=== PATIENT | male | born 1950 | race Caucasian/White ===

== ENCOUNTER 2021-08-24 22:00 | Inpatient (IN) | payer OTHER ==
[~2021-08-24] VITALS: Ht 167.6 cm; Wt 85.7 kg
--- NOTE | 2021-08-24 23:00 | NUR ---
PT BIBWIFE C/O LEFT LOWER EXTREMITY SWELLING WITH PAIN. PT AAOX 4 BREATHING EVENLY AND UNLABORED. UPON ASSESSMENT, THERE IS SWELLING TO THE LEFT LEG, BUT NO REDNESS NOTED. PEDAL PULSES FELT IN LEFT EXTREMITY. PT ATTACHED TO MONITOR AND POX.
--- NOTE | 2021-08-24 23:22 | NUR ---
US TECH EN ROUTE. ETA 10MIN
--- NOTE | 2021-08-24 23:49 | NUR ---
US TECH AT BEDSIDE
--- NOTE | 2021-08-25 00:41 | NUR ---
MOVE SHEET SUBMITTED
--- NOTE | 2021-08-25 00:49 | NUR ---
BLOOD DRAWN AND SENT TO LAB
--- NOTE | 2021-08-25 00:50 | NUR ---
COVID SWAB SENT TO LAB
--- NOTE | 2021-08-25 00:51 | NUR ---
STAT RAD PAGED, RESULTS ETA 1 HOUR
[2021-08-25 00:56] LABS: BASOPHILS # (AUTO) 0.1 K/uL (0.0-0.2); EOSINOPHILS % (AUTO) 3.8 % (0.0-6.0); HEMATOCRIT 46 % (39-51); HEMOGLOBIN 15.6 g/dL (13.5-17.5); LYMPHOCYTES # (AUTO) 2.1 K/uL (0.8-4.8); LYMPHOCYTES % (AUTO) 24.3 % (20.0-44.0); MEAN CORPUSCULAR HGB CONC 34 g/dl (31.0-36.0); MEAN CORPUSCULAR VOLUME 98 fL (80-96); MONOCYTES # (AUTO) 0.9 K/uL (0.1-1.30); MONOCYTES % (AUTO) 10.4 % (2.0-12.0); NEUTROPHILS # (AUTO) 5.3 K/uL (1.8-8.9); NEUTROPHILS % (AUTO) 60.5 % (43.0-81.0); PLATELET COUNT (AUTO) 86 K/uL (150-450); RED BLOOD CELL COUNT(AUTO) 4.66 MIL/uL (4.5-6.0); WHITE BLOOD COUNT (AUTO) 8.7 K/uL (4.3-11.0)
[2021-08-25] MEDS ORDERED: ENOXAPARIN SODIUM 100 MG/ML DISP.SYRIN SQ ONE (00:56)
[2021-08-25] MEDS ORDERED: ENOXAPARIN SODIUM 30 MG/0.3 ML DISP.SYRIN SQ ONE (01:00)
[2021-08-25 01:16] LABS: CALCIUM, SERUM 8.6 mg/dL (8.5-10.1); CARBON DIOXIDE 28 mmol/L (21-32); CHLORIDE 103 mmol/L (98-107); GLUCOSE 111 mg/dL (74-106); POTASSIUM 4.1 mmol/L (3.5-5.1); SODIUM SERUM 138 mmol/L (136-145); UREA NITROGEN, BLOOD 17 mg/dL (7-18)
[2021-08-25 01:21] LABS: ALANINE AMINOTRANSFERASE 12 U/L (12-78); ALBUMIN 3.1 g/dL (3.4-5.0); ALKALINE PHOSPHATASE 62 U/L (46-116); ASPARTATE AMINOTRANSFERASE 16 U/L (15-37); BILIRUBIN,DIRECT 0.2 mg/dL (0.0-0.2); BILIRUBIN,TOTAL 0.8 mg/dL (0.2-1.0); TOTAL PROTEIN, SERUM 7.3 g/dL (6.4-8.2)
--- NOTE | 2021-08-25 01:23 | NUR ---
per lab Troponin 160. aware
--- NOTE | 2021-08-25 01:23 | NUR ---
Tran humphries in [facility] - 08/25/21 at 0123 by JOSH 160 tropopin
[2021-08-25 01:42] LABS: BASOPHILS % (MANUAL) 0 % (0.0-2.0); EOSINOPHILS % (MANUAL) 5 % (0-4); LYMPHOCYTES % (MANUAL) 26 % (16-48); MONOCYTES % (MANUAL) 12 % (0-11.0); NEUTROPHILS % (MANUAL) 64 (42-76)
--- NOTE | 2021-08-25 02:02 | NUR ---
VERBAL AUTH FROM GREG FROM [facility], CM
--- NOTE | 2021-08-25 02:07 | NUR ---
[facility] PAGED
--- NOTE | 2021-08-25 02:36 | NUR ---
REPAGED [facility], SOLAR ENERGY SYSTEM INSTALLER HELPER DR SCHNEIDER
--- NOTE | 2021-08-25 04:00 | NUR ---
Patient is resting comfortably in bed with eyes closed. Easily aroused. VSS
[2021-08-25] MEDS ORDERED: ACETAMINOPHEN 325 MG TABLET PO PRN (05:30)
[2021-08-25] MEDS ORDERED: ONDANSETRON HCL/PF 4 MG/2 ML VIAL IVP PRN (05:30)
--- NOTE | 2021-08-25 05:30 | NUR ---
PT AMBULATED TO USE BATHROOM. NEEDS MET
--- NOTE | 2021-08-25 06:00 | NUR ---
PT SLEEPING, ATTACHED TO MONITOR AND POX. VSS
[2021-08-25] MEDS ORDERED: LOSA25TA27 PO (06:59)
--- NOTE | 2021-08-25 08:38 | NUR ---
report given to Malika SCHREIBER to continue care.
--- NOTE | 2021-08-25 08:40 | NUR ---
wheeled patient via gurney accompanied by RN and emt in no distress. RN assigned to patient at bedside to assume care.
[2021-08-25 08:50] VITALS: BP 130/89
[2021-08-25 09:28] LABS: CHOLESTEROL 183 mg/dL (<200); HDL CHOLESTEROL 58 mg/dL (40-60); LDL 110 mg/dL (0-99); TRIGLYCERIDES 49 mg/dL (30-150)
[2021-08-25] MEDS ORDERED: ASPIRIN 81 MG TAB.CHEW PO SCH (09:30)
[2021-08-25] MEDS: ENOXAPARIN SODIUM 80 MG/0.8 ML DISP.SYRIN SQ SCH ×2 (09:42→21:53)
[2021-08-25] MEDS: ATORVASTATIN 10 MG TABLET PO SCH (10:03)
--- NOTE | 2021-08-25 10:30 | NUR ---
SUMAC TANNER ADMITTING NOTES PATIENT ARRIVED TO UNIT @0845 WITH TRANSPORT. PATIENT ABLE TO AMBULATE TO HIS BED, GAIT STEADY. PATIENT IS A/0 x4, CHILEAN, KINYARWANDA FIRST LANGUAGE, UNDERSTANDS AND SPEAKS SOME UKRAINIAN. FULL BODY ASSESSMENT COMPLETED, HEART SOUNDS WITHIN NORMAL LIMITS, LUNG SOUNDS CLEAR, SOUNDS PRESENT IN ALL FOUR QUADRANTS OF STOMACH. STOMACH IS SOFT, NO PAIN NOTED WHEN PRESSED. SKIN IS INTACT, EDEMA NOTED ON L LEG +2, HARD SWOLLEN CALF. PATIENT ATTACHED TO EXTERNAL CIRCULATION TENDER AT THIS TIME, READING SINUS BRADYCARDIA 68. NO C/O OF CARDIAC DISTRESS EXPRESSED. ON ROOM AIR, NO S/S OF RESPIRATORY DISTRESS NOTED. IV ACCESS IN L AC #20G, INTACT AND PATENT. DAUGHTER AT BEDSIDE, WILL CONTINUE TO MONITOR.
[2021-08-25] MEDS ORDERED: IV NS 0.9% 250 ML IV ONE (10:43)
[2021-08-25] MEDS ORDERED: IOHEXOL-350 100 ML VIAL IV ONE (10:43)
[2021-08-25] MEDS ORDERED: CT SWABBABLE VALVE TRANS SET 1 EA INFUS.SET MC ONE (10:44)
--- NOTE | 2021-08-25 10:48 | NUR ---
RN NOTES PATIENT LEFT UNIT FOR CT SCAN, PATIENT LEFT VIA WHEELCHAIR IN STABLE CONDITION WITH 1 STAFF ACCOMPANYING
--- NOTE | 2021-08-25 11:28 | NUR ---
RN NOTES PATIENT RETURNED TO UNIT IN STABLE CONDITION, SON NOW AT BEDSIDE.
--- NOTE | 2021-08-25 12:08 | NUR ---
RN NOTES RECEIVED CT PULMONARY ANGIO RESULTS, DR. CHEEK INFORMED AND RESULTS ACKNOWLEDGED. NO NEW ORDERS AT TIME.
[2021-08-25 16:00] VITALS: BP_SYST 120; BP_SYST 124; BP_DIAS 73; BP_DIAS 77
--- NOTE | 2021-08-25 18:34 | NUR ---
PHOTOGRAPHIC PRINTER CLOSING NOTES PATIENT SLEEPING IN BED, EASILY AROUSED. A/O x4, STABLE ON ROOM AIR NO S/S OF RESPIRATORY DISTRESS OR DISCOMFORT. PATIENT IS ON TELE MONITORING, SINUS GINA RHYTHM AT THIS TIME, HR 57, NO S/S OF CARDIAC DISTRESS. NO PAIN OR DISCOMFORT NOTED OR VERBALIZED AT THIS TIME. IV ACCESS L AC #20, INTACT AND PATENT, NO S/S OF BLEEDING OR INFILTRATION AT THIS TIME. AMBULATORY AND CONTINENT HAS BATHROOM PRIVILEGE. SKIN IS INTACT, PATIENT HAS LLE DVT AND EDEMA OF ANKLE AND FOOT +2. ALL PRESCRIBED MEDICATION ADMINISTERED. SAFETY MEASURES MAINTAINED: BED LOCKED AND IN LOWEST POSITION, SIDE RAILS UP x2, CALL LIGHT WITHIN REACH, HEAD OF THE BED ELEVATED. WILL ENDORSE TO NEXT SHIFT ANY DAVIS.
--- NOTE | 2021-08-25 19:42 | NUR ---
MANAGER ACCESS NOTES: RECEIVED PATIENT CHATTING WITH FAMILY MEMBERS. A/O x4, SPEAKS ISRAELI. STABLE ON ROOM AIR NO S/S OF RESPIRATORY OR CARDIAC DISTRESS. DENIES ANY PAIN. PATIENT IS ON TELE MONITORING, SINUS GINA RHYTHM AT THIS TIME. IV ACCESS L AC #20, INTACT AND PATENT. PATIENT IS AMBULATORY AND CONTINENT AND HAS BATHROOM PRIVILEGE. BED IS LOCKED AND IN LOWEST POSITION, SIDE RAILS UP x2 FOR SAFETY, CALL LIGHT WITHIN REACH. WILL CONTINUE TO MONITOR.
[2021-08-25 20:00] VITALS: BP 146/91
[2021-08-26] VITALS: BP 128/81
[2021-08-26 04:00] VITALS: BP 123/66
--- NOTE | 2021-08-26 06:38 | NUR ---
CAB STARTER CLOSING NOTES: PATIENT IS SLEEPING IN BED AND STABLE ON ROOM AIR. NO S/S OF RESPIRATORY OR CARDIAC DISTRESS. PATIENT IS ON TELE MONITORING, SINUS GINA RHYTHM AT THIS TIME. IV ACCESS L AC #20, INTACT AND PATENT. PATIENT HAS LLE DVT AND EDEMA. PATIENT IS AMBULATORY AND CONTINENT AND HAS BATHROOM PRIVILEGE. ALL PATIENT CARE NEEDS HAVE BEEN MET ANTICIPATED. BED IS LOCKED AND IN LOWEST POSITION, SIDE RAILS UP x2 FOR SAFETY, CALL LIGHT WITHIN REACH. WILL CONTINUE TO MONITOR.
[2021-08-26 06:49] LABS: BASOPHILS # (AUTO) 0.1 K/uL (0.0-0.2); HEMATOCRIT 43 % (39-51); HEMOGLOBIN 14.6 g/dL (13.5-17.5); LYMPHOCYTES # (AUTO) 2.2 K/uL (0.8-4.8); LYMPHOCYTES % (AUTO) 29.5 % (20.0-44.0); MEAN CORPUSCULAR HGB CONC 34 g/dl (31.0-36.0); MEAN CORPUSCULAR VOLUME 98 fL (80-96); MONOCYTES # (AUTO) 0.7 K/uL (0.1-1.30); MONOCYTES % (AUTO) 9.9 % (2.0-12.0); NEUTROPHILS # (AUTO) 3.9 K/uL (1.8-8.9); NEUTROPHILS % (AUTO) 52.6 % (43.0-81.0); PLATELET COUNT (AUTO) 101 K/uL (150-450); WHITE BLOOD COUNT (AUTO) 7.4 K/uL (4.3-11.0)
--- NOTE | 2021-08-26 07:05 | NUR ---
MOLYBDENUM STEAMER OPERATOR OPENING NOTES RECEIVED PATIENT AWAKE IN BED. A/O x4, STABLE ON ROOM AIR NO S/S OF RESPIRATORY DISTRESS OR DISCOMFORT. PATIENT IS ON TELE MONITORING, SINUS GNIA RHYTHM AT THIS TIME, HR 59, NO S/S OF CARDIAC DISTRESS. NO PAIN OR DISCOMFORT NOTED OR VERBALIZED AT THIS TIME. IV ACCESS L AC #20, INTACT AND PATENT, NO S/S OF BLEEDING OR INFILTRATION AT THIS TIME. AMBULATORY AND CONTINENT HAS BATHROOM PRIVILEGE. SKIN IS INTACT, PATIENT HAS LLE DVT AND EDEMA OF ANKLE AND FOOT +2. SAFETY MEASURES IN PLACE: BED LOCKED AND IN LOWEST POSITION, SIDE RAILS UP x2, CALL LIGHT WITHIN REACH, HEAD OF THE BED ELEVATED. WILL CONTINUE TO MONITOR.
[2021-08-26 08:00] VITALS: BP 133/85
[2021-08-26 08:06] LABS: CALCIUM, SERUM 8.4 mg/dL (8.5-10.1); CREATININE 0.9 mg/dL (0.6-1.3); MAGNESIUM 2.4 mg/dL (1.8-2.4); PHOSPHORUS 3.3 mg/dL (2.5-4.9)
[2021-08-26] MEDS: ENOXAPARIN SODIUM 80 MG/0.8 ML DISP.SYRIN SQ SCH ×2 (08:46→21:18)
[2021-08-26] MEDS: ATORVASTATIN 10 MG TABLET PO SCH (08:46)
--- NOTE | 2021-08-26 09:00 | NUR ---
RN NOTES PATIENT WENT DOWN FOR CT ANGIO OF THE HEART. STABLE AND ACCOMPANIED BY 1 CAGE MAKER IN WHEELCHAIR.
--- NOTE | 2021-08-26 10:00 | NUR ---
RN NOTES PATIENT RETURNED FROM CT, STABLE, NO S/S OF PAIN OR DISCOMFORT. WILL CONTINUE TO MONITOR.
[2021-08-26] MEDS ORDERED: IV NS 0.9% 250 ML IV ONE (10:04)
[2021-08-26] MEDS ORDERED: IOHEXOL-350 100 ML VIAL IV ONE (10:04)
[2021-08-26] MEDS ORDERED: CT SWABBABLE VALVE TRANS SET 1 EA INFUS.SET MC ONE (10:04)
[2021-08-26] MEDS ORDERED: NITROGLYCERIN 0.4 MG/TAB BOTTLE ONE (10:04)
[2021-08-26] MEDS ORDERED: METOPROLOL TARTRATE INJ 5 MG/5 ML AMPUL ONE (10:04)
[2021-08-26 12:00] VITALS: BP 137/82
[2021-08-26 16:00] VITALS: BP 128/74
--- NOTE | 2021-08-26 18:42 | NUR ---
MATERIAL HANDLER 2ND SHIFT CLOSING NOTES RECEIVED PATIENT AWAKE IN BED. A/O x4, STABLE ON ROOM AIR NO S/S OF RESPIRATORY DISTRESS OR DISCOMFORT. PATIENT IS ON TELE MONITORING, SINUS GINA RHYTHM AT THIS TIME, HR 57, NO S/S OF CARDIAC DISTRESS. NO PAIN OR DISCOMFORT NOTED OR VERBALIZED AT THIS TIME. IV ACCESS L AC #20, INTACT AND PATENT, NO S/S OF BLEEDING OR INFILTRATION AT THIS TIME. AMBULATORY AND CONTINENT HAS BATHROOM PRIVILEGE. SKIN IS INTACT, PATIENT HAS LLE DVT AND EDEMA OF ANKLE AND FOOT +2. ALL PRESCRIBED MEDICATION ADMINISTERED. SAFETY MEASURES MAINTAINED: BED LOCKED AND IN LOWEST POSITION, SIDE RAILS UP x2, CALL LIGHT WITHIN REACH, HEAD OF THE BED ELEVATED. WILL ENDORSE TO NEXT SHIFT ANY DAVIS.
[2021-08-26 20:00] VITALS: BP 132/86
--- NOTE | 2021-08-26 20:00 | NUR ---
PATTERNMAKER HELPER OPENING NOTES RECEIVED PATIENT AWAKE IN BED. A/O x4, STABLE ON ROOM AIR NO S/S OF RESPIRATORY DISTRESS OR DISCOMFORT. PATIENT IS ON TELE MONITORING, SINUS GINA RHYTHM AT THIS TIME, HR 57, NO S/S OF CARDIAC DISTRESS. NO PAIN OR DISCOMFORT NOTED OR VERBALIZED AT THIS TIME. IV ACCESS L AC #20, INTACT AND PATENT, NO S/S OF BLEEDING OR INFILTRATION AT THIS TIME. AMBULATORY AND CONTINENT HAS BATHROOM PRIVILEGE. SKIN IS INTACT, PATIENT HAS LLE DVT AND EDEMA OF ANKLE AND FOOT +2. SAFETY MEASURES MAINTAINED: BED LOCKED AND IN LOWEST POSITION, SIDE RAILS UP x2, CALL LIGHT WITHIN REACH, HEAD OF THE BED ELEVATED. WILL CONTINUE TO MONITOR.
--- NOTE | 2021-08-26 21:28 | NUR ---
DEPLOYMENT TECHNICIAN NOTES PT SEEN BY DR KEYES NEW ORDER FOR CT OF THE ABDOMEN WITH CONTRAST CONSENT OBTAINED PLACED IN CHART PT TO BE NPO AFTER MIDNIGHT FOR CT ON THE AM PT AWARE. WILL CONTINUE TO MONITOR.
[2021-08-27] VITALS: BP 118/74
[2021-08-27 04:00] VITALS: BP 113/83
--- NOTE | 2021-08-27 06:49 | NUR ---
LEGAL RECORDS CLERK CLOSING NOTES PATIENT ASLEEP IN BED. A/O x4, STABLE ON ROOM AIR NO S/S OF RESPIRATORY DISTRESS OR DISCOMFORT. PATIENT IS ON TELE MONITORING, SINUS GINA RHYTHM AT THIS TIME NO S/S OF CARDIAC DISTRESS. NO PAIN OR DISCOMFORT NOTED OR VERBALIZED AT THIS TIME. IV ACCESS LAC #20, INTACT AND PATENT, NO S/S OF BLEEDING OR INFILTRATION AT THIS TIME. AMBULATORY AND CONTINENT HAS BATHROOM PRIVILEGE. SKIN IS INTACT, PATIENT HAS LLE DVT AND EDEMA OF ANKLE AND FOOT +2. SAFETY MEASURES MAINTAINED: BED LOCKED AND IN LOWEST POSITION, SIDE RAILS UP x2, CALL LIGHT WITHIN REACH, HEAD OF THE BED ELEVATED. WILL ENDORSE CARE TO DAY SHIFT NURSE.
[2021-08-27 07:07] LABS: PROSTATE SPECIFIC ANTIGEN SCR 2.27 ng/mL (0.00-4.00)
--- NOTE | 2021-08-27 07:30 | NUR ---
INSTRUCTOR WASTEWATER TREATMENT PLANT OPENING NOTES RECEIVED PATIENT SLEEPING COMFORTABLY IN BED. A/O x4, STABLE ON ROOM AIR NO S/S OF RESPIRATORY DISTRESS OR DISCOMFORT. PATIENT IS ON TELE MONITORING, SINUS GINA RHYTHM, HR 56. NO REPORTED PAIN OR DISCOMFORT AT THIS TIME. SKIN IS INTACT, PATIENT HAS LLE DVT AND EDEMA OF ANKLE AND FOOT +2. IV ACCESS LAC #20, INTACT AND PATENT. PATIENT IS AMBULATORY AND HAS BATHROOM PRIVILEGE. SAFETY MEASURES MAINTAINED: BED LOCKED AND IN LOWEST POSITION, SIDE RAILS UP x2, CALL LIGHT WITHIN REACH, HEAD OF THE BED ELEVATED. WILL CONTINUE TO MONITOR FOR DAVIS.
[2021-08-27 08:00] VITALS: BP 136/79
[2021-08-27] MEDS: ATORVASTATIN 10 MG TABLET PO SCH (08:57)
[2021-08-27] MEDS: APIXABAN 5 MG TABLET PO SCH ×2 (08:58→16:24)
[2021-08-27 10:03] LABS: CALCIUM, SERUM 8.5 mg/dL (8.5-10.1); CREATININE 0.9 mg/dL (0.6-1.3)
[2021-08-27 10:04] LABS: BASOPHILS # (AUTO) 0.1 K/uL (0.0-0.2); BASOPHILS % (AUTO) 0.8 % (0.0-2.0); HEMATOCRIT 44 % (39-51); HEMOGLOBIN 14.7 g/dL (13.5-17.5); LYMPHOCYTES # (AUTO) 1.7 K/uL (0.8-4.8); LYMPHOCYTES % (AUTO) 23.2 % (20.0-44.0); MEAN CORPUSCULAR HGB CONC 34 g/dl (31.0-36.0); MEAN CORPUSCULAR VOLUME 98 fL (80-96); MONOCYTES # (AUTO) 0.8 K/uL (0.1-1.30); MONOCYTES % (AUTO) 10.1 % (2.0-12.0); NEUTROPHILS # (AUTO) 4.5 K/uL (1.8-8.9); NEUTROPHILS % (AUTO) 59.9 % (43.0-81.0); PLATELET COUNT (AUTO) 130 K/uL (150-450); RED BLOOD CELL COUNT(AUTO) 4.48 MIL/uL (4.5-6.0); WHITE BLOOD COUNT (AUTO) 7.5 K/uL (4.3-11.0)
[2021-08-27] MEDS ORDERED: APIX5TAB PO (10:07)
[2021-08-27 12:00] VITALS: BP 126/70
[2021-08-27] MEDS ORDERED: IV NS 0.9% 250 ML IV ONE (12:36)
[2021-08-27] MEDS ORDERED: IOHEXOL-300 100 ML VIAL IV ONE (12:36)
[2021-08-27] MEDS ORDERED: CT SWABBABLE VALVE TRANS SET 1 EA INFUS.SET MC ONE (12:36)
[2021-08-27 16:00] VITALS: BP 103/59
--- NOTE | 2021-08-27 19:28 | NUR ---
STAMPING DIE TRY OUT WORKER CLOSING NOTES PATIENT COMFORTABLY LYING IN BED. A/O x4, STABLE ON ROOM AIR NO S/S OF RESPIRATORY DISTRESS OR DISCOMFORT. PATIENT IS ON TELE MONITORING, SINUS GINA RHYTHM, HR 56. NO REPORTED PAIN OR DISCOMFORT AT THIS TIME. SKIN IS INTACT, PATIENT HAS LLE DVT AND EDEMA OF ANKLE AND FOOT +2. IV ACCESS LAC #20, INTACT AND PATENT. PATIENT IS AMBULATORY AND HAS BATHROOM PRIVILEGE. SAFETY MEASURES MAINTAINED: BED LOCKED AND IN LOWEST POSITION, SIDE RAILS UP x2, CALL LIGHT WITHIN REACH, HEAD OF THE BED ELEVATED. WILL CONTINUE TO MONITOR FOR DAVIS.
--- NOTE | 2021-08-27 20:48 | NUR ---
COMMERCIAL TRUCK DRIVER NOTES SPOKE TO DR KEYES PT CLEARED FOR D/C TONIGHT WITH INSTRUCTIONS TO FOLLOW UP WITH HER OUTPT. PT INSTRUCTIONS GIVEN TO DAUGHTER.IV REMOVED PT STABLE FOR D/C INSTRUCTED TO F/U WITH PRIMARY CARE PHYSICIAN FOR ANYMORE QUESTIONS.
[2021-08-29 22:06] LABS: *ANTITHROMBIN III AG 84 % (72-124); *THROMBIN TIME 15.8 sec (0.0-23.0); *dPT CONFIRM RATIO 0.98 Ratio (0.00-1.34); *dRVVT 38.3 sec (0.0-47.0)
[2021-08-30 21:06] LABS: *CARD ANTI-CARDIOLIPIN AB IgG <9 GPL U/mL (0-14); *CARD ANTI-CARDIOLIPIN AB IgM <9 MPL U/mL (0-12)
== END 2021-08-27 20:30 | disposition home or self-care (01) | DRG 197 ==
LOC: ER 22:12 → TRANSITION 08-25 05:30 → TELE 08-25 08:14
PROVIDERS: ADMIT Internal Medicine; ATTEND Internal Medicine
DX: I82.432 Acute embolism and thrombosis of left popliteal vein (principal); I26.99 Other pulmonary embolism without acute cor pulmonale; I21.4 Non-ST elevation (NSTEMI) myocardial infarction; E43 Unspecified severe protein-calorie malnutrition; D69.6 Thrombocytopenia, unspecified; E88.09 Other disorders of plasma-protein metabolism, not elsewhere classified; I82.412 Acute embolism and thrombosis of left femoral vein; I10 Essential (primary) hypertension; Z20.822 Contact with and (suspected) exposure to COVID-19; Z86.79 Personal history of other diseases of the circulatory system; E66.9 Obesity, unspecified; N40.0 Benign prostatic hyperplasia without lower urinary tract symptoms; I77.810 Thoracic aortic ectasia; Z68.30 Body mass index [BMI] 30.0-30.9, adult
CPT/HCPCS: 36415; 71045-TC; 75574; 80048-TC; 80061-TC; 80076-TC; 81240; 81241; 82378; 82607-TC; 83090; 83735-TC; 84100-TC; 84153-TC; 84154-TC; 84484-TC; 85025-TC; 85300; 85301; 85303; 85613; 85670; 85705; 85730-TC; 85732; 86147; 87081-TC; 93307-TC; 93971-TC; C9803; G0378; J1650; J2405; J3490; J7050; Q9967

== ENCOUNTER 2021-08-28 13:48 | Emergency (ER) | payer OTHER ==
[~2021-08-28] VITALS: Ht 167.6 cm; Wt 84.4 kg
[~2021-08-28 13:48] MED LIST: APIX5TAB PO; LOSA25TA27 PO
[2021-08-28 13:52] VITALS: BP 112/77
== END 2021-08-28 14:54 | disposition home or self-care (01) ==
LOC: ER 13:53
DX: R60.0 Localized edema (principal); I10 Essential (primary) hypertension; Z79.899 Other long term (current) drug therapy

== ENCOUNTER 2024-05-13 14:25 | Emergency (ER) | payer MEDICARE, OTHER ==
[~2024-05-13] VITALS: Ht 172.7 cm; Wt 80.3 kg
[2024-05-13 15:43] LABS: BASOPHILS # (AUTO) 0.1 K/uL (0.0-0.2); BASOPHILS % (AUTO) 1.5 % (0.0-2.0); EOSINOPHILS # (AUTO) 0.1 K/uL (0.0-0.7); EOSINOPHILS % (AUTO) 1.6 % (0.0-6.0); HEMATOCRIT 41 % (39-51); MEAN CORPUSCULAR HEMOGLOBIN 32 PG (26.0-33.0); MEAN CORPUSCULAR HGB CONC 34 g/dl (31.0-36.0); MEAN CORPUSCULAR VOLUME 95 fL (80-96); MONOCYTES # (AUTO) 0.6 K/uL (0.1-1.30); MONOCYTES % (AUTO) 9.2 % (2.0-12.0); NEUTROPHILS # (AUTO) 3.3 K/uL (1.8-8.9); NEUTROPHILS % (AUTO) 54.7 % (43.0-81.0); PLATELET COUNT (AUTO) 164 K/uL (150-450); RED BLOOD CELL COUNT(AUTO) 4.34 MIL/uL (4.5-6.0); RED CELL DISTRIBUTION WIDTH 13.9 % (11.5-15.0)
[2024-05-13 15:54] LABS: CALCIUM, SERUM 8.4 mg/dL (8.5-10.1); CREATININE 1.1 mg/dL (0.6-1.3)
[2024-05-13 16:02] LABS: D-DIMER 1.45 mg/L(FEU (0.17-0.50); PROTHROMBIN TIME 10.6 SECS (9.2-11.1)
[2024-05-13 16:42] VITALS: BP 128/80; TEMP 98.6; O2SAT 96
== END 2024-05-13 16:42 | disposition home or self-care (01) ==
LOC: ER 14:29
DX: R60.9 Edema, unspecified (principal); I10 Essential (primary) hypertension; Z79.01 Long term (current) use of anticoagulants; Z79.82 Long term (current) use of aspirin; Z79.899 Other long term (current) drug therapy; Z86.718 Personal history of other venous thrombosis and embolism
CPT/HCPCS: 36415; 80048-TC; 85025-TC; 85378-TC; 85610-TC; 93971-TC